=== PATIENT | female | born 1960 | race Caucasian/White ===

== ENCOUNTER → 2017-02-28 | Outpatient (CLI) | payer BC ==
--- NOTE | ~2017-02-28 | MR165 ---
[facility] A Service of [facility] & [facility] RADIOLOGY TEXT RESULTS PATIENT: BRYANT RAO LOCATION: [facility] : 60 UNIT #: [id number] AGE: [address]: SHELDON MAHAN APRN SEX: F ORDER DR: [id number] [facility] [address] [place], [place] [address] [id number] O MR#: [id number] Acc #: [id number] NAME: BRYANT RAO : 1960 SEX: F STUDY DATE/TIME: 02/28/2017 13:07 UNIT: [facility] ROOM: STUDY DESCRIPTION: MR Shoulder Wo Contrast Rt Attending Physician: Sheldon Mahan Aprn Referring Physician: Sheldon Mahan Aprn Ordering Physician: Sheldon Mahan Aprn Primary Care Physician: Paula Weiss M.D. MRI CENTER REPORT This report is preliminary unless electronic signature is present. EXAM MRI of the right shoulder without contrast. HISTORY 56-year-old female injured right shoulder over 30 years ago has had multiple shoulder surgeries. Chronic pain and decreased range of motion. History of distal clavicular excision 08/30/2016. COMPARISON Right shoulder films, 08/17/2016. FINDINGS Multiplanar, multiecho imaging was performed of the right shoulder utilizing a high field magnet and dedicated protocol. Study is slightly degraded due to motion artifact, as the patient was in considerable pain during the examination. Study, however, is felt to be diagnostic. Morphologic changes in the distal clavicle and AC joint compatible with distal clavicular excision. There is free communication of fluid from the subacromial-subdeltoid bursa to the AC joint compatible with the inferior acromioclavicular ligament release. Suture anchor noted in the anterior proximal humerus compatible with biceps tenodesis. There is a glenohumeral joint effusion with synovitis and extensive fluid extending into the subacromial subdeltoid bursa. There is a large full-thickness rotator cuff tear with a near complete tear of the supraspinatus tendon measuring 2.3 x 2.8 cm in greatest AP and transverse dimension. There is also a complete tear of the subscapularis tendon which is estimated over 3 cm medial to lateral dimension and approximately 2.5 cm cephalocaudal dimension. There is retraction of the supraspinatus tendon back to the medial third of the humeral head with evidence of tendinopathy within the retracted tendon. The infraspinatus also demonstrates tendinopathy. The teres minor tendon appears intact. [facility]. [facility] A Service of [facility] RADIOLOGY TEXT RESULTS PATIENT: BRYANT RAO LOCATION: [facility] : 60 UNIT #: [id number] AGE: [address]: SHELDON MAHAN APRN SEX: F ORDER DR: Mild atrophy of the supraspinatus muscle. Morphologic changes in the superior labrum suggest labral debridement. Patient has undergone biceps tenodesis with apparent resection of the intraarticular biceps and biceps anchor. Anterior and posterior labrum unremarkable. The articular cartilage appears normal. IMPRESSION 1. 2.3 x 2.8 cm full-thickness and near complete tear of the supraspinatus tendon superimposed on diffuse tendinopathy. 2. 2.5 x 3 cm full-thickness and near complete tear of the subscapularis tendon. Only a small portion of the humeral attachment of the subscapularis tendon remains in place. 3. Glenohumeral joint synovitis and extensive subacromial-subdeltoid bursa fluid and bursitis. 4. Postsurgical changes from biceps tenodesis. 5. Postsurgical changes from distal clavicular resection. Dictated by... Alejandra Isabel M.D. THIS IS AN ELECTRONICALLY VERIFIED REPORT Alejandra Isabel M.D. at 03/04/2017 2:13 PM NEAL/adán TD: 03/01/2017 09:50 JOB #: [id number] MRI CENTER REPORT Page 1 of 1 COPY
== END | disposition home or self-care (01) ==
LOC: CMRI 12:18
DX: M75.91 Shoulder lesion, unspecified, right shoulder (principal); M75.121 Complete rotator cuff tear or rupture of right shoulder, not specified as traumatic; M75.51 Bursitis of right shoulder; Z98.890 Other specified postprocedural states
CPT/HCPCS: 73221

== ENCOUNTER → 2017-03-05 | Outpatient (CLI) | payer BC ==
--- NOTE | ~2017-03-05 | MR10 ---
[facility] A Service of [facility] RADIOLOGY TEXT RESULTS PATIENT: TRACY RAO LOCATION: [facility] : 60 UNIT #: [id number] AGE: [address]: CATHRYN VALVERDE PA-C SEX: F ORDER DR: [id number] [facility]. [place], [place] [address] [id number] O MR#: [id number] Acc #: [id number] NAME: TRACY RAO : 1960 SEX: F STUDY DATE/TIME: 03/05/2017 12:56 UNIT: [facility] ROOM: STUDY DESCRIPTION: MR Ankle Wo Contrast Lt Attending Physician: Cathryn Valverde Pa-C Referring Physician: Cathryn Valverde Pa-C Ordering Physician: Physician Non-Staff Primary Care Physician: Paula Weiss M.D. MRI CENTER REPORT This report is preliminary unless electronic signature is present. EXAM MRI left ankle and hindfoot without contrast, 03/05/2017 HISTORY Order states chronic subtalar joint pain and sinus tarsi pain. History sheet states chronic ankle pain for 5 years. No known trauma and no surgery. Marker placed over area f most pain. Patient was unable to complete exam due to severe shoulder pain. COMPARISON Left foot radiographs 02/07/2012, and bilateral ankle/feet radiographs 02/21/2017. FINDINGS Only 5 of the 7 series were accomplished. The patient was unable to continue reportedly due to shoulder pain. The tibiotalar joint shows no effusion, fracture, or visible loose body. A chronic-appearing approximate 9.0 x 5.0 mm focus of articular irregularity of the medial dome of the talus is likely sequela of old osteochondral injury and/or chondromalacia. No ligament pathology is noted. No tendon pathology is evident. There is plantar fascia low signal thickening and enthesophyte formation without tear or inflammation. Sinus tarsi and tarsal tunnel are unremarkable. Subtalar joints are normal. 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 There is joint space narrowing, osteophyte formation, subcortical cysts, and marrow edema predominating at the intermediate cuneiform articulation. Talonavicular and calcaneal cuboid joints are normal. Midfoot alignment and Lisfranc ligament are normal. There is mild arthrosis at the fourth and fifth tarsal-metatarsal joints. There is no marrow lesion or fracture. There is no muscle atrophy. IMPRESSION 1. 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 2. Small subcentimeter chronic-appearing osteochondral abnormality of the medial dome of the talus, likely sequela of old injury and/or chondromalacia. 3. Sinus tarsi, tarsal tunnel, and subtalar joints are normal. 4. Chronic plantar fasciopathy. 5. No ligament or tendon pathology seen. Dictated by... Tracy Bowers M.D. THIS IS AN ELECTRONICALLY VERIFIED REPORT Tracy Bowers M.D. at 03/06/2017 1:02 PM Charlene TD: 03/06/2017 12:16 JOB #: [id number] MRI CENTER REPORT Page 1 of 1 COPY
== END | disposition home or self-care (01) ==
LOC: CMRI 12:34
DX: M25.572 Pain in left ankle and joints of left foot (principal); G89.29 Other chronic pain; R93.7 Abnormal findings on diagnostic imaging of other parts of musculoskeletal system; M72.2 Plantar fascial fibromatosis
CPT/HCPCS: 73721